=== PATIENT | male | born 1995 | race Caucasian/White ===

== ENCOUNTER 2018-10-25 20:29 | Emergency (ER) | payer BC ==
[~2018-10-25] VITALS: Ht 170.2 cm; Wt 72.8 kg
[2018-10-25 20:30] VITALS: BP 130/74; PULSE 80; RESP 20; Ht 170.2 cm; Wt 72.8 kg
[2018-10-25] MEDS ORDERED: MED4DP PO (21:03)
[2018-10-25] MEDS ORDERED: NAPR-985 PO (21:03)
[2018-10-25] MEDS ORDERED: CYCL10TA7 PO (21:03)
--- NOTE | 2018-10-25 22:28 | ERD ---
ER Documentation Chief Complaint Chief Complaint Lower back pain since am HPI 23-year-old male presenting to the emergency department with complaints of bilateral low back pain intermittent for the past 1 day. He states he woke up with the pain. Pain is rated moderate to severe. He denies any loss of bowel or bladder function. He denies any falls or trauma. He denies lifting any heavy objects. He has history of similar symptoms in the past. He tried nlvh-kvo-eeuzqon medication without significant relief. ROS All systems reviewed and are negative except as per history of present illness. Medications Home Meds Active Scripts Methylprednisolone* (Medrol* DOSE PACK) 4 Mg/Dose-Pack Tab.ds.pk, 4 MG PO . DIRECTED, #1 PACKET Prov:STU RANGEL PA-C 10/25/18 Cyclobenzaprine Hcl* (Cyclobenzaprine Hcl*) 10 Mg Tablet, 10 MG PO TID, #15 TAB Prov:STU RANGEL PA-C 10/25/18 Naproxen* (Naprosyn*) 500 Mg Tablet, 500 MG PO BID PRN for PAIN AND/OR INFLAMMATION, #30 TAB Prov:STU RANGEL PA-C 10/25/18 PMhx/Soc Medical and Surgical Hx: pt denies Medical Hx FmHx Family History: No diabetes Physical Exam Vitals Vital Signs Date Temp Pulse Resp B/P (MAP) Pulse Ox O2 O2 Flow FiO2 Time Delivery Rate 10/25/18 97.8 80 20 130/74 100 20:30 (92) Physical Exam Const: No acute distress Head: Atraumatic Eyes: Normal Conjunctiva ENT: Normal External Ears, Nose and Mouth. Neck: Full range of motion. No meningismus. Resp: Clear to auscultation bilaterally Cardio: Regular rate and rhythm, no murmurs Skin: No petechiae or rashes Back: No midline or flank tenderness. Tenderness palpation of the paraspinal muscles of the lumbar spine bilaterally. Ext: No cyanosis, or edema Neur: Awake and alert Psych: Normal Mood and Affect Procedures/MDM 23-year-old male presenting to the emergency department with history and physical examination was consistent with muscular skeletal low back pain. Patient's musculoskeletal symptoms have stabilized while they have been evaluated in the department and are appropriate for outpatient work up. No evidence of cauda equina, cord compression, infiltrative, or infectious etiology. No evidence of life-threatening pathology at time of discharge. Pt/family in agreement with discharge plan/diagnosis. Pt/family advised to return immediately with any new or worsening symptoms. Follow-up with primary care physician within the next 1-2 days. Disclaimer: Inadvertent spelling and grammatical errors are likely due to EHR/dictation software use and do not reflect on the overall quality of patient care. Also, please note that the electronic time recorded on this note does not necessarily reflect the actual time of the patient encounter. Departure Diagnosis: Primary Impression: Low back pain Condition: Fair Patient Instructions: Back Pain (Acute Or Chronic) [facility] Usted se de la o hecho un examen mdico de control que le indica que no est en dalila condicin que requiera tratamiento urgente en el Departamento de Emergencia. Un estudio ms profundo y el tratamiento de shelton condicin pueden esperar sin ningn riesgo hasta que usted sea atendida/o en el consultorio de shelton mdico o dalila clnica. Es responsabilidad suya arreglar dalila mendel para el seguimiento del woody. MANEJO DE CONDICIONES NO URGENTES EN EL FUTURO 1) Si usted tiene un mdico de atencin primaria: Usted debera llamar a shelton mdico de atencin primaria antes de venir al departamento de emergencia. Despus de las horas de consultorio, shelton doctor o shelton asociado/a est disponible por telfono. El mdico o enfermero de ariella en el servicio telefnico puede asesorarle por dana medio para atender el problema, o woody contrario se puede programar dalila mendel. 2) Si usted no tiene un mdico de atencin primaria: Llame al mdico o clnica de referencia que aparece abajo jae las horas de consultorio para hacer dalila mendel para que le vean. CLINICAS: [facility] [phone] [facility] [phone] [facility]. [facility] [phone] [place] [id number] [phone] [place] [phone] [facility]. [phone] [address] Additional Instructions: Llame al doctor MAANA y clare dalila MENDEL PARA DENTRO DE 1-2 ABDUL.Dgale a la secretaria que nosotros le instruimos hacer esta mendel.Avise o llame si shelton condicin se empeora antes de la mendel. Regresa aqui si peor o no mejor. STU RANGEL PA-C October 25, 2018 22:28
== END 2018-10-25 21:47 | disposition home or self-care (01) ==
LOC: E/R 20:29
DX: M54.5 Low back pain (principal)
CPT/HCPCS: 99283